=== PATIENT | male | born 1980 | race African-American/Black ===

== ENCOUNTER 2019-02-28 19:13 | Emergency (ER) | payer OTHER ==
[2019-02-28] MEDS ORDERED: ACET/COD 300 MG/30 MG STARTER PACK 6 TAB BTL PO STA (19:35)
[2019-02-28] MEDS ORDERED: KETOROLAC 60 MG/2 ML VIAL IM STA (19:35)
--- NOTE | 2019-02-28 20:01 | XR ---
EXAMINATION TYPE: XR wrist complete LT DATE OF EXAM: 02/28/2019 COMPARISON: NONE HISTORY: Wrist pain TECHNIQUE: 4 views FINDINGS: Metacarpals are intact. I see no fracture nor dislocation. Carpal bones are intact. Scaphoi d appears normal. IMPRESSION: Negative left wrist exam. Minor spurring noted at the first carpometacarpal joint.
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
[2019-02-28 20:33] VITALS: BP 138/106; PULSE 69; RESP 17; TEMP 98.7
== END 2019-02-28 20:33 | disposition home or self-care (01) ==
LOC: EC 19:13
DX: M77.9 Enthesopathy, unspecified (principal); F17.200 Nicotine dependence, unspecified, uncomplicated
CPT/HCPCS: 73110; 99283; 96372; J1885